=== PATIENT | female | born 1950 | race Caucasian/White ===

== ENCOUNTER 2025-01-23 22:28 | Emergency (ER) | payer SELFPAY ==
[2025-01-23 22:32] VITALS: BP 199/93
[2025-01-23 22:55] LABS: % Basophils 0.4 % (0-2); % Eosinophils 2.4 % (0-6); % Immature Granulocytes 0.1 % (0-0.5); % Lymphocytes 42.1 % (20.5-51.1); % Monocytes 8.9 % (1.7-9.3); % Neutrophils 46.1 % (42.2-75.2); Absolute Eosinophils 0.2 10^3/uL (0-0.7); Absolute Monocytes 0.6 10^3/uL (0.1-0.6); Absolute Neutrophils 3.3 10^3/uL (1.4-6.5); Hematocrit 36.3 % (37.0-47.0); Hemoglobin 12.1 g/dL (12.0-16.0); Mean Corp Hgb Conc. 33.3 g/dL (33.0-37.0); Mean Corpuscular Hgb 31.3 pg (27.0-31.0); Mean Platelet Volume 10.1 fL (7.4-10.4); Nucleated Red Blood Cells % 0 %; Platelet Count 282 10^3/uL (130-400); Red Blood Cell Count 3.86 10^6/uL (4.20-5.40); Red Cell Dist. Width 12.9 % (11.5-14.5); White Blood Cell Count 7.2 10^3/uL (4.8-10.8)
[2025-01-23 23:18] LABS: Troponin I < 0.012 ng/ml
[2025-01-23 23:21] LABS: ALT (SGPT) 17 U/L (0-35); AST (SGOT) 20 U/L (14-36); Alkaline Phosphatase 65 U/L (38-126); Blood Urea Nitrogen 16 mg/dl (7-17); Calcium 8.9 mg/dl (8.4-10.2); Carbon Dioxide 25 mmol/L (22-30); Chloride 104 mmol/L (98-107); Glucose 102 mg/dl (70-99); Potassium 4.4 mmol/L (3.5-5.1); Sodium 135 mmol/L (135-145); Total Bilirubin 0.7 mg/dl (0.2-1.3); Total Protein 6.6 g/dl (6.3-8.2); eGFR > 60.00
[2025-01-24 00:14] VITALS: BP 143/80
[2025-01-24 00:18] VITALS: BMI 29.3
[2025-01-24 01:00] VITALS: BP 132/71
--- NOTE | 2025-01-24 01:07 | ED.GENMED ---
Addendum entered and electronically signed by Reid Ramirez PA-C 01/26/25 07:49:
Luminary urine culture shows greater than 100,000 colony-forming units of gram negative bacilli. Treated with fosfomycin. Sensitivities pending
Original Note:
History of Present Illness
General
Chief Complaint: Blood Pressure Problem
Source: patient and family
Exam Limitations: none
Time Seen by Provider: 01/24/25 00:58
Nursing documentation reviewed up to this point in time: agreed with
History of Present Illness
History of Present Illness:
This a pleasant 74-year-old female that presents with headache that has been waxing and waning since Wednesday. She noted that her blood pressure has been elevated during this time. She is treated for hypertension by her family doctor. She has not
been in contact with her PCP since the symptoms started. Today she felt dizzy and she was unable to walk with a steady gait. She denies that this is the worst headache of her life but states that it was more severe during the day. Currently she
states that her headache is minimal but she does have some right baptist pain
Review of Systems
Review of Systems
Allergies reviewed?: Yes
Other source history: family
All Other Systems: ROS reviewed and negative except as documented in HPI and ROS
Constitutional: Reports no symptoms
EENT: Reports no symptoms
Respiratory: Reports no symptoms
Cardiac: Reports no symptoms
ABD/GI: Reports no symptoms
: Reports no symptoms
Musculoskeletal: Reports no symptoms
Skin: Reports no symptoms
Neurological: Reports dizzy and headache; Denies weakness or numbness
Endocrine: Reports no symptoms
Hematologic/Lymphatic: Reports no symptoms
Psychiatric: Reports anxiety
Phy Exam
General Physical Exam
General Presentation: well appearing and no apparent distress
General Skin: warm and dry
General Habitus: normal
General Mental: alert
General Hydration: appears well hydrated
ENT Exam
ENT Exam: EOMI, pharynx normal, neck supple and normocephalic
Eye Exam
Eye Exam: PERRL, cornea clear and conjunctiva normal
Cardiovascular Exam
Cardiovascular Exam: regular rate/rhythm, no edema, no murmur and normal peripheral pulses
Pulmonary Exam
Pulmonary Exam: lungs clear, no respiratory distress, no rales, no crackles, no rhonchi, no stridor, no wheezing and no cough
Gastrointestinal Exam
Gastrointestinal Exam: normal bowel sounds, non tender, soft, no organomegaly, no pulsatile mass and non distended
Neurological Exam
Neurological Exam: alert, oriented x3, no motor deficits and speech normal
Musculoskeletal Exam
Musculoskeletal Exam: full ROM and no edema
Skin Exam
Skin Exam: normal color, warm/dry, no rash and no petechia
Psychiatric Exam
Psychiatric Exam: normal mood/affect
Course
Orders/Labs/Results
Orders:
Orders
01/23/25 22:31
ECG [Electrocardiogram (*1)] Urgent
Reason for Study: Hypertension, Benign
EKG- Treatment ONCE
01/23/25 22:46
Complete Blood Count/With Diff Urgent
Comprehensive Metabolic Panel Urgent
TSH Urgent
Comment: ADD ON
Troponin I Urgent
01/24/25 00:59
Add On- LAB Urgent
Tests Added?: tsh
01/24/25 01:07
CT Head & Neck Angio W/wo IV Urgent
Comment:
Reason For Exam: Head and neck pain with lingering baptist pain, diz
01/24/25 01:21
CRP [C-Reactive Protein] Urgent
Sed Rate [Erythrocyte Sed Rate] Urgent
01/24/25 02:38
Urinalysis Reflex To Culture Urgent
Date Specimen was Collected: 01/24/25
Time Specimen was Collected: 02:35
Urine Microscopic Reflex Cult Urgent
Urine Culture Urgent
DOLORES Source: U
Specimen Description:
Date Specimen was Collected: 01/24/25
Time Specimen was Collected: 02:35
01/24/25 04:04
Fosfomycin [Monurol] 3 gm .ROUTE .STK-MED ONE
01/24/25 04:06
Fosfomycin [Monurol] 3 gm PO ONCE ONE
Abnormal Lab Results
01/23/25 01/24/25
22:46 02:38
RBC 3.86 L 10^6/uL
(4.20-5.40)
Hct 36.3 L %
(37.0-47.0)
MCH 31.3 H pg
(27.0-31.0)
Glucose 102 H mg/dl
(70-99)
TSH 11.20 H uIU/ml
(0.47-4.68)
Ur Occult Blood Reflex 2+ A
(Negative)
Urine Nitrite (Reflex) Positive A
(Negative)
Leukocyte Esterase Rfl 2+ A
(Negative)
Urine RBC 7-10 A /HPF
(0-2)
Urine WBC (Reflex) 30-40 A /HPF
(0-5)
Urine Bacteria (Reflex) Many A
(Negative)
Urine Albumin (Reflex) 1+ A
(Neg - Trace)
01/23/25 22:46
01/23/25 22:46
Vital Signs
Initial and Last Documented VS:
Initial Vital Signs
Temp Pulse Resp BP Pulse Ox
98.4 F 69 16 199/93 99
01/23/25 22:32 01/23/25 22:32 01/23/25 22:32 01/23/25 22:32 01/23/25 22:32
Last Documented Vital Signs
Temp Pulse Resp BP Pulse Ox
98.2 F 69 16 161/75 98
01/24/25 00:25 01/24/25 04:11 01/24/25 04:11 01/24/25 04:11 01/24/25 04:11
*Critical Care Note
Total Time (30-74mins, 75-104mins- exclusive of procedures): Not Applicable
ED Attending Note
-
Portions of this chart may have been created with voice recognition software.� Occasional wrong word or��sound alike� substitutions may have occurred due to the inherent limitations of voice recognition software.
Discharge Plan
Departure
Patient Disposition: Home (Routine Discharge)
Date of Disposition: 01/24/25
Time of Disposition: 04:36
Patient with high blood pressure during this ER visit?: Yes
Discharge Problem:
Acute UTI, Elevated TSH, Headache
Instructions: Urinary tract infections in adults, Headache, Child ED, BLOOD PRESSURE
Prescriptions:
No Action
omeprazole 40 mg Capsule,Delayed Release(Dr/Ec)
40 mg PO DAILY
simvastatin 40 mg Tablet
40 mg PO HS
Rx Instructions:
unsure of mg
levothyroxine [Synthroid] 100 mcg Tablet
100 mcg PO DAILY
losartan 25 mg Tablet
25 mg PO DAILY
magnesium Tablet
1 tab PO DAILY
vitamin D3-vitamin K2 1,250-200 mcg Capsule
1 cap PO DAILY
Patient Comments:
unsure of mg
Glucosamine
1 tab PO DAILY
vitamin D95-eavav acid
1 tab PO DAILY
Rx Instructions:
unsure of mg
Referrals:
Luke Ariza DO [Family Provider] -
Activity Restrictions/Additional Instructions:
You received a one-time dose of antibiotic for your urinary tract infection. Unless notified you will not need any further doses. When the cultures come back you may receive a phone call stating that we have to give additional antibiotics.
Your thyroid-stimulating hormone or TSH test was elevated. Please follow-up with your family doctor to have this value repeated and possible adjustments to your medication.
It was a pleasure meeting you and taking part in your care. We hope for your continued healing and wellness.
Please read discharge instructions in their entirety. However, they are for general education and may not describe your exact diagnosis at discharge. Information on your ER visit and medical conditions were discussed with you along with appropriate
follow up information...
If indicated, please take your medications as instructed and indicated on discharge paperwork.
Please schedule a follow up appointment as directed. Call to schedule an appointment
Please return to the emergency department with ANY change in, persisting, or worsening of symptoms. If any of your symptoms do not improve, or persist, or become more severe within 6-12 hours, please return to the emergency department for further
care.
Please return to the emergency department if you develop a headache, neck pain/stiffness, fever greater than 100.4F, chest pain, shortness of breath, persistent nausea, vomiting, slurred speech, difficulty walking, numbness/tingling, weakness, signs
of infection or any other symptoms that are worrisome to you.
If you have any questions or concerns please do not hesitate to call the Hospital at or E-mail me directly at [email or web address]
Interventions
Interventions:
*Risk Screen - Suicide Last Done: 01/23/25 22:32
*Neglect/Abuse Screening Last Done: 01/23/25 22:32
ED- Fall Risk Assessment Last Done: 01/24/25 00:18
*ED COVID-19 Vaccine History Last Done: 01/23/25 22:32
ED- Cardiac Assessment Last Done: 01/24/25 00:18
ED- Neurological Assessment Last Done: 01/24/25 00:18
ED- Pulmonary Assessment Last Done: 01/24/25 00:18
Discharge Date and Time
Print Language: FRENCH
[2025-01-24 01:48] LABS: Erythrocyte Sed Rate 7 mm/hour (0-20)
[2025-01-24 02:00] VITALS: BP 144/72
[2025-01-24 03:08] LABS: Urine Albumin 1+ (Neg - Trace); Urine Bilirubin Negative (Negative); Urine Character Clear (Clear); Urine Color Yellow; Urine Glucose Negative (Negative); Urine Ketone Negative (Negative); Urine Leukocyte 2+ (Negative); Urine Nitrite Positive (Negative); Urine Occult Blood 2+ (Negative); Urine Urobilinogen Negative (Neg - 1+); Urine pH 6.5 (5.0-9.0)
[2025-01-24 03:35] LABS: Urine Bacteria Many (Negative); Urine White Cell 30-40 /HPF (0-5)
[2025-01-24] MEDS: MONUROL 3 GM PO (04:07)
[2025-01-24 04:11] VITALS: BP 161/75
== END 2025-01-24 04:47 | disposition home or self-care (01) ==
LOC: EMR 22:28
PROVIDERS: EMERGENCY PHYSICIAN Student in an Organized Health Care Education/Training Program; FAMILY PHYSICIAN Family Medicine
DX: N39.0 Urinary tract infection, site not specified (principal); R94.6 Abnormal results of thyroid function studies; R51.9 Headache, unspecified; I10 Essential (primary) hypertension
CPT/HCPCS: 99284; 70496; 70498; 80053; 81003; 81015; 84443; 84484; 85025; 85652; 86140; 87077; 87086; 93005; Q9967